=== PATIENT | female | born 1975 | race Two or more races ===

== ENCOUNTER 2016-06-12 10:20 | Emergency (ER) | payer SELFPAY ==
[2016-06-12] MEDS ORDERED: ONDANSETRON 4 MG/2ML 2 ML VIAL ONE (12:46)
[2016-06-12] MEDS ORDERED: MAALOX/LIDO2%VISC/SIMETHICONE 40 ML BOT ONE (12:46)
[2016-06-12] MEDS ORDERED: FAMOTIDINE 10 MG/ML 2ML VIAL ONE (12:46)
[2016-06-12] MEDS ORDERED: SODIUM CHLORIDE 0.9% 1,000 ML ONE (12:46)
[2016-06-12 12:55] LABS: ABSOLUTE NEUTROPHIL COUNT 6.2 K/mm3 (1.8-7.7); BASO % 0.1 % (0.2-1.0); EOS % 0.1 % (0.9-2.9); HEMATOCRIT 36.9 % (37.0-47.0); HEMOGLOBIN 11.3 gm/l (12.0-16.0); IMM NEUT% 0.4 % (0-1); LYMPH # 1.5 (1.0-4.8); LYMPH % 18.6 % (15-45); MEAN CELL VOLUME 78.7 fl (81.0-99.0); MEAN CORPUSCULAR HEMOGLOBIN 24.1 pg (27.0-31.0); MEAN CORPUSCULAR HGB CONC 30.6 g/dl (33.0-37.0); MEAN PLATELET VOLUME 10.4 fl (7.4-10.4); MONO # 0.3 (0.0-0.8); MONO % 4.2 % (4-12); NEUT % 76.6 % (43-75); PLATELET COUNT 264 K/mm3 (130-400); RED CELL DISTRIBUTION WIDTH 14.6 % (11.5-14.5)
[2016-06-12 13:18] LABS: ALB/GLOB RATIO 1.1 (>1.0); ALBUMIN 3.9 gm/dL (3.5-5.7); CALCIUM 8.9 mg/dL (8.6-10.3)
== END 2016-06-12 14:14 | disposition home or self-care (01) ==
LOC: ED 10:20
DX: K29.70 Gastritis, unspecified, without bleeding (principal)
CPT/HCPCS: 83690; 85025; 80053; 96375; 99283 ×2; 96374; 96361; A9270; J2405; J7030

== ENCOUNTER 2016-06-15 08:20 | Emergency (ER) | payer SELFPAY ==
[2016-06-15] MEDS ORDERED: PANTOPRAZOLE 40 MG TABLET DR PO ONE (09:21)
[2016-06-15] MEDS ORDERED: ONDANSETRON 4 MG ODT TAB ONE (09:21)
[2016-06-15] MEDS ORDERED: MAALOX/LIDO2%VISC/SIMETHICONE 40 ML BOT ONE (09:21)
[2016-06-15] MEDS ORDERED: KETOROLAC TROMETHAMINE 30 MG/ML 1 ML VIAL ONE (10:16)
[2016-06-15] MEDS ORDERED: SODIUM CHLORIDE 0.9% 1,000 ML ONE (10:16)
[2016-06-15 10:24] LABS: BASO % 0.2 % (0.2-1.0); EOS % 0.2 % (0.9-2.9); HEMATOCRIT 39.7 % (37.0-47.0); HEMOGLOBIN 11.9 gm/l (12.0-16.0); IMM NEUT% 0.2 % (0-1); LYMPH # 1.4 (1.0-4.8); LYMPH % 15.4 % (15-45); MEAN CELL VOLUME 79.1 fl (81.0-99.0); MEAN CORPUSCULAR HEMOGLOBIN 23.7 pg (27.0-31.0); MEAN PLATELET VOLUME 10.4 fl (7.4-10.4); MONO # 0.5 (0.0-0.8); MONO % 5.2 % (4-12); NEUT % 78.8 % (43-75); PLATELET COUNT 308 K/mm3 (130-400); RED CELL DISTRIBUTION WIDTH 14.9 % (11.5-14.5)
[2016-06-15 10:48] LABS: CALCIUM 9.4 mg/dL (8.6-10.3)
== END 2016-06-15 12:04 | disposition home or self-care (01) ==
LOC: ED 08:20
DX: R10.13 Epigastric pain (principal); R11.2 Nausea with vomiting, unspecified
CPT/HCPCS: 83690; 82150; 85025; 80053; 99284; 96374; 96361 ×2; 99283; A9270 ×3; J1885; J7030